=== PATIENT | female | born 1940 ===

== ENCOUNTER 2018-07-23 14:04 | Emergency (ER) | payer BC ==
--- NOTE | 2018-07-23 14:23 | C.PDOC ---
History Of Present Illness 77 year old female presents to ED complaining of bleeding to her right second toe since yesterday. Patient states she was trimming her toenails last night and noticed the bleeding today from the 2nd toe. Patient takes aspirin daily. Denies any tenderness, swelling, weakness, or numbness. <Earnest Marie V - Last Filed: 07/23/18 14:25> History Per: Patient History/Exam Limitations: no limitations Onset/Duration Of Symptoms: Days Current Symptoms Are (Timing): Still Present <Earnest Marie V - Last Filed: 07/23/18 14:25> <Vida Mcdonough - Last Filed: 07/23/18 14:37> Chief Complaint (Nursing): Abnormal Skin Integrity Past Medical History Reviewed: Historical Data, Nursing Documentation, Vital Signs - Medical History PMH: Arthritis, HTN Surgical History: No Surg Hx Family History: States: No Known Family Hx - Social History Hx Tobacco Use: No Hx Alcohol Use: No Hx Substance Use: No - Immunization History Hx Tetanus Toxoid Vaccination: No Hx Influenza Vaccination: No Hx Pneumococcal Vaccination: No <Earnest Marie V - Last Filed: 07/23/18 14:25> Review Of Systems Except As Marked, All Systems Reviewed And Found Negative. Musculoskeletal: Positive for: Foot Pain (R second toe bleeding) <Earnest Marie V - Last Filed: 07/23/18 14:25> Physical Exam - Physical Exam Appears: Non-toxic, No Acute Distress Skin: Warm, Dry, Other (Mild skin avulsion to R 2nd toe) Head: Atraumatic, Normacephalic Eye(s): bilateral: Normal Inspection Oral Mucosa: Moist Neck: Supple Chest: Symmetrical Cardiovascular: Rhythm Regular, No Murmur Respiratory: Normal Breath Sounds, No Rales, No Rhonchi, No Wheezing Extremity: No Tenderness, Capillary Refill (less than 2 seconds), No Deformity, No Swelling, Other (Small bleeding from tup of R 2nd toe) Extremity: Bilateral: Normal Color And Temperature, Normal ROM Neurological/Psych: Oriented x3, Normal Speech, Normal Motor, Normal Sensation, Normal Reflexes <Earnest Marie V - Last Filed: 07/23/18 14:25> Disposition - Disposition Disposition Time: 14:27 - POA Present On Arrival: None <Earnest Marie V - Last Filed: 07/23/18 14:25> <Vida Mcdonough - Last Filed: 07/23/18 14:37> - Disposition Disposition: HOME/ ROUTINE Condition: GOOD Prescriptions: Cephalexin [Keflex] 500 mg PO QID #28 capsule Instructions: Toe Injury Forms: [facility] (Georgian), Gen Discharge Inst Swedish - Clinical Impression Clinical Impression: Avulsion of skin of toe - Scribe Statement The provider has reviewed the documentation as recorded by the Scribe April Qureshi <Earnest Marie V - Last Filed: 07/23/18 14:25> - PA / 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 <Vida Mcdonough - Last Filed: 07/23/18 14:37>
[2018-07-23] MEDS ORDERED: Silver Nitrate Topical - Stick ONE (14:25)
[2018-07-23 19:05] VITALS: BP 142/85; PULSE 86; RESP 16; TEMP 97.8; O2SAT 98
== END 2018-07-23 14:31 | disposition home or self-care (01) ==
LOC: C.ER 14:04
DX: S91.104A Unspecified open wound of right lesser toe(s) without damage to nail, initial encounter (principal); X58.XXXA Exposure to other specified factors, initial encounter; Y92.89 Other specified places as the place of occurrence of the external cause